=== PATIENT | male | born 2000 | race Caucasian/White ===

== ENCOUNTER 2022-09-22 15:17 | Emergency (ER) | payer SELFPAY ==
[~2022-09-22] VITALS: Ht 175.3 cm; Wt 70.3 kg
[2022-09-22 15:20] VITALS: BP 123/69
--- NOTE | 2022-09-22 15:20 | NUR ---
BIBA TO BED 6
--- NOTE | 2022-09-22 15:40 | NUR ---
ATTEMPTED ASSESSMENT USING VIKI BRIDGE GAME DIRECTOR #[id number]. PT UNCOOPERATIVE
--- NOTE | 2022-09-22 15:46 | NUR ---
XRAY AT BEDSIDE
--- NOTE | 2022-09-22 15:51 | NUR ---
LAB AT BEDSIDE
--- NOTE | 2022-09-22 16:04 | NUR ---
PT TAKEN TO CT VIA JODI
[2022-09-22 16:14] LABS: BASOPHILS # (AUTO) 0.1 K/uL (0.00-0.22); BASOPHILS % (AUTO) 0.3 % (0.0-2.0); EOSINOPHILS % (AUTO) 0.1 % (0.0-4.0); HEMATOCRIT 44.7 % (36-52); HEMOGLOBIN 14.9 g/dL (12.0-18.0); LYMPHOCYTES # (AUTO) 2.1 K/uL (2.0-11.5); LYMPHOCYTES % (AUTO) 9.4 % (20.5-51.1); MEAN CORPUSCULAR HEMOGLOBIN 27 pg (27-31); MEAN CORPUSCULAR HGB CONC 34 g/dL (33-37); MEAN CORPUSCULAR VOLUME 79.9 fL (80-94); MONOCYTES # (AUTO) 0.8 K/uL (0.8-1.0); MONOCYTES % (AUTO) 3.7 % (1.7-9.3); NEUTROPHILS % (AUTO) 86.5 % (42.2-75.2); PLATELET COUNT (AUTO) 328 K/uL (140-450); RED BLOOD CELL COUNT(AUTO) 5.59 MIL/uL (4.20-6.10); RED CELL DISTRIBUTION WIDTH 13.5 % (11.6-13.7)
--- NOTE | 2022-09-22 16:38 | NUR ---
16 FR Urinary STAIGHT catheter inserted utilizing sterile technique. Immediate return of 1100 ml CLEAR urine noted. Urine sample collected and sent to lab. Pt tolerated procedure WELL.
[2022-09-22 16:45] LABS: ALBUMIN 4.3 g/dL (3.4-5.0); ASPARTATE AMINOTRANSFERASE 25 U/L (15-37); CARBON DIOXIDE 29.3 mmol/L (21-32); CHLORIDE 102 mmol/L (98-107); CREATININE 0.9 mg/dL (0.6-1.3); GFR ARICAN-AMERICAN 138 mL/min (>90); GLUCOSE 106 mg/dL (74-106); POTASSIUM 4.3 mmol/L (3.5-5.1); SODIUM SERUM 140 mmol/L (136-145); TOTAL BILIRUBIN 1.2 mg/dL (0.0-1.0); UREA NITROGEN, BLOOD 8 mg/dL (7-18)
[2022-09-22 16:49] LABS: ACETAMINOPHEN < 0.5 ug/ml (10-30); SALICYLATE < 2.8 mg/dL (2.8-20.0)
[2022-09-22 17:44] LABS: APPEARANCE,URINE CLEAR (CLEAR); BILIRUBIN,URINE NEGATIVE (NEGATIVE); BLOOD, URINE NEGATIVE (NEGATIVE); COLOR,URINE YELLOW (YELLOW); LEUKOCYTE ESTERASE ,URINE NEGATIVE (NEGATIVE); NITRITE, URINE NEGATIVE (NEGATIVE); UGLUCOSE NEGATIVE (NEGATIVE)
[2022-09-22 17:59] LABS: BARBITURATE, URINE NEGATIVE ng/ml (NEG <=200); BENZODIAZEPINE, URINE NEGATIVE ng/mL (NEG <=200); CANNABINOID, URINE NEGATIVE ng/mL (NEG <=50); COCAINE, URINE NEGATIVE ng/mL (NEG <=300); OPIATE, URINE NEGATIVE ng/mL (NEG <=2000); PHENCYCLIDINE SCREEN,URINE NEGATIVE ng/mL (NEG <=25)
[2022-09-22] MEDS ORDERED: NACL 0.9% 1,000 ML IV ONE ×2 (18:15→21:15)
--- NOTE | 2022-09-22 18:50 | NUR ---
pt updated on status using [facility] cleaning laborer # [id number] JANET
--- NOTE | 2022-09-22 19:16 | NUR ---
REPORT GIVEN TO JOSE DE JESUS KELLY. ALL QUESTIONS ANSWERED. TRANSFER OF CARE AT THIS TIME
--- NOTE | 2022-09-22 23:13 | NUR ---
LABS REDRAWN BY SURVEYOR HELPER ROD
[2022-09-22 23:20] LABS: BASOPHILS % (AUTO) 0.5 % (0.0-2.0); EOSINOPHILS # (AUTO) 0.1 K/uL (0-0.4); EOSINOPHILS % (AUTO) 0.7 % (0.0-4.0); HEMATOCRIT 40.1 % (36-52); HEMOGLOBIN 13.6 g/dL (12.0-18.0); LYMPHOCYTES # (AUTO) 3.1 K/uL (2.0-11.5); LYMPHOCYTES % (AUTO) 28.8 % (20.5-51.1); MEAN CORPUSCULAR HEMOGLOBIN 27 pg (27-31); MEAN CORPUSCULAR HGB CONC 34 g/dL (33-37); MEAN CORPUSCULAR VOLUME 79.8 fL (80-94); MONOCYTES # (AUTO) 0.6 K/uL (0.8-1.0); MONOCYTES % (AUTO) 5.2 % (1.7-9.3); NEUTROPHILS % (AUTO) 64.8 % (42.2-75.2); PLATELET COUNT (AUTO) 300 K/uL (140-450); RED BLOOD CELL COUNT(AUTO) 5.03 MIL/uL (4.20-6.10); RED CELL DISTRIBUTION WIDTH 13.6 % (11.6-13.7); WHITE BLOOD COUNT (AUTO) 10.7 K/uL (4.5-11.0)
[2022-09-23 00:11] VITALS: BP 125/81
--- NOTE | 2022-09-23 00:11 | NUR ---
Patient discharged with v/s stable. Written and verbal after care instructions given and explained. Patient verbalized understanding. Ambulatory with steady gait. All questions addressed prior to discharge. Advised to follow up with PMD.
== END 2022-09-23 00:54 | disposition home or self-care (01) ==
LOC: MED 15:17
DX: F10.129 Alcohol abuse with intoxication, unspecified (principal); E86.0 Dehydration; D72.829 Elevated white blood cell count, unspecified
CPT/HCPCS: 36415; 70450; 71045; 80053; 80305; 81003; 83605; 83690; 85025; 87040; 87086; 93005; 96360; 96361; 99285; G0480; G0482; J7030